=== PATIENT | female | born 1975 | race Caucasian/White ===

== ENCOUNTER 2021-10-24 18:27 | Emergency (ER) | payer MEDICARE, MEDICAID ==
[~2021-10-24] VITALS: Ht 167.6 cm; Wt 108.0 kg
[2021-10-24 19:47] VITALS: BP 148/84
== END 2021-10-24 19:30 | disposition left against medical advice (07) ==
LOC: ED 18:27
DX: R51.9 Headache, unspecified (principal); Z91.19 Patient's noncompliance with other medical treatment and regimen